=== PATIENT | male | born 1995 | race Caucasian/White ===

== ENCOUNTER 2017-02-18 15:58 | Emergency (ER) | payer SELFPAY ==
[2017-02-18 16:05] VITALS: BP 108/90
[2017-02-18] MEDS ORDERED: Meclizine TAB* 12.5 MG PO ONE (16:43)
[2017-02-18] MEDS ORDERED: Acetaminophen TAB* 325 MG PO ONE (16:43)
[2017-02-18] MEDS ORDERED: Ondansetron ODT TAB* 4 MG SL ONE (16:43)
--- NOTE | 2017-02-18 16:56 | ED ---
Adult Trauma - HPI Summary HPI Summary: The patient is a 21 year old male presenting for left eye injury. Reports accidentally punched in left eye while playing gator ball. Complains of left eye pain, blurred vision, photophobia, epistaxis, headache, dizziness, nausea, vomiting twice, and ataxia. Denies prior head injury. Denies neck pain or immobility, trismus, chest pain, shortness of breath, abdominal pain, gross hematuria, unilateral weakness, paresthesias. Denies past medical or surgical history. Denies family history. SH: Denies smoking, alcohol, or recreational drug use. Student in college. [employer]. - History of Current Complaint Chief Complaint: EDFacialInjury Stated Complaint: HIT HEAD / VOMITING Time Seen by Provider: 02/18/17 16:11 Pain Intensity: 9 - Allergy/Home Medications Allergies/Adverse Reactions: Allergies Allergy/AdvReac Type Severity Reaction Status Date / Time Sulfa Antibiotics Allergy Unknown Verified 09/19/16 11:14 Reaction Details PMH/Surg Hx/FS Hx/Imm Hx Endocrine/Hematology History: Denies: Hx Diabetes, Hx Thyroid Disease Cardiovascular History: Denies: Hx Congestive Heart Failure, Hx Deep Vein Thrombosis, Hx Hypertension , Hx Myocardial Infarction, Hx Pacemaker/ICD Respiratory History: Denies: Hx Asthma, Hx Chronic Obstructive Pulmonary Disease (COPD), Hx Lung Cancer, Hx Pneumonia, Hx Pulmonary Embolism GI History: Denies: Hx Gall Bladder Disease, Hx Gastrointestinal Bleed, Hx Ulcer, Hx Urosepsis History: Denies: Hx Kidney Stones, Hx Renal Disease Neurological History: Denies: Hx Dementia, Hx Migraine, Hx Seizures, Hx Transient Ischemic Attacks (TIA) Psychiatric History: Denies: Hx Anxiety, Hx Depression, Hx Schizophrenia, Hx Bipolar Disorder Infectious Disease History: No Infectious Disease History: Denies: Traveled Outside the [place] in Last 30 Days - Family History Known Family History: Positive: None Negative: Cardiac Disease, Hypertension, Diabetes - Social History Alcohol Use: None Substance Use Type: Reports: None Smoking Status (MU): Never Smoked Tobacco Type: Smokeless Tobacco Amount Used/How Often: "once every two months" Review of Systems Positive: Fatigue. Negative: Fever, Chills Positive: Photophobia, Blurred Vision. Negative: Diplopia, Erythema Positive: Epistaxis. Negative: Dental Pain Cardiovascular: Negative Negative: Chest Pain Respiratory: Negative Negative: Cough Positive: Vomiting, Nausea. Negative: Abdominal Pain Genitourinary: Negative Negative: hematuria Musculoskeletal: Negative Negative: Arthralgia, Myalgia, Decreased ROM Skin: Negative Negative: Rash, Bruising Positive: Headache. Negative: Paresthesia, Numbness, Syncope Psychological: Normal All Other Systems Reviewed And Are Negative: Yes Physical Exam Triage Information Reviewed: Yes Vital Signs On Initial Exam: Initial Vitals Temp Pulse Resp BP Pulse Ox 98.6 F 64 16 108/90 100 02/18/17 16:00 02/18/17 16:00 02/18/17 16:00 02/18/17 16:00 02/18/17 16:00 Appearance: Positive: Well-Appearing, Well-Nourished, Pain Distress - moderate pain guarding left eye with clear lacrimation Skin: Positive: Warm, Skin Color Reflects Adequate Perfusion, Dry Head/Face: Positive: Other - left infraorbital ecchymosis. Negative: TMJ Tenderness, Cephalohematoma Eyes: Positive: EOMI, KRISTINE, Conjunctiva Clear, Other: - Left corneal mildly injected; stain uptake with minor linear abrasion left medial corneal without full thickness penetration; no anterior hyphema or subconjunctival hemorrhage.. Negative: Normal, Conjunctiva Inflammed, Discharge ENT: Positive: Hearing grossly normal, Pharynx normal, TMs normal - No lomeli sign, hemotympanum or CSF drainage., Other - friable left nasal septum intact without hemorrhage; mild nasal bridge tenderness Dental: Negative: Dental Fracture @ Neck: Positive: Supple, Nontender, No Lymphadenopathy Respiratory/Lung Sounds: Positive: Clear to Auscultation, Breath Sounds Present. Negative: Decreased Breath Sounds, Rales, Rhonchi, Wheezes Cardiovascular: Positive: Normal - radial pulse 2+, RRR, S1, S2. Negative: Murmur, Rub, Tachycardia Abdomen Description: Positive: Nontender, No Organomegaly, Soft. Negative: Distended, Guarding, Hepatomegaly, Peritoneal Signs, Splenomegaly Bowel Sounds: Positive: Present Musculoskeletal: Positive: Normal, Strength/ROM Intact. Negative: Limited @, Interruption @, Pain @ Neurological: Positive: Normal, Sensory/Motor Intact, Alert, Oriented to Person Place, Time, CN Intact II-III, Reflexes Intact, Finger to Nose - normal, Facial Symmetry, Speech Normal Psychiatric: Positive: Normal AVPU Assessment: Alert Diagnostics - Vital Signs Vital Signs Temp Pulse Resp BP Pulse Ox 03/23/17 16:00 98.6 F 64 16 108/90 100 - Laboratory Lab Statement: Any lab studies that have been ordered have been reviewed, and results considered in the medical decision making process. Re-Evaluation - Re-Evaluation First Eval Re-Evaluation Time: 18:05 Change: Improved Comment: Reports improved headache, resolved vomiting. Persistent pain left eye. Adult Trauma Course/Dx - Course Assessment/Plan: Patient presented for head injury and left eye injury. CT Brain negative for intracranial process and CT maxillofacial negative for acute fracture. Impression of acute concussion, resolved epistaxis, and corneal abrasion. Rx zofran, meclizine, and erythromycin eye ointment. Removed from classes until Wednesday and advised to abstain from physical activity until cleared by [facility]. Given referral to Dr. Chung for re- eval of eye in 3-5 days. - Diagnoses Provider Diagnoses: Corneal abrasion, left, Concussion, Epistaxis Discharge - Discharge Plan Condition: Stable Disposition: HOME Prescriptions: Erythromycin OPHTH.OINT* [Ilotycin OPHTH.OINT*] 1 applic LEFT EYE QID #1 tube Meclizine TAB* [Antivert 12.5 TAB*] 25 mg PO TID #20 tab Ondansetron ODT TAB* [Zofran 4 MG Odt TAB*] 4 mg PO Q6H PRN #20 tab.odt PRN Reason: Nausea Patient Education Materials: Concussion (ED), Corneal Abrasion (ED), Nosebleed (ED) Forms: *School Release Referrals: Non Staff,Doctor [Primary Care Provider] - Tomy Chung MD [Medical Doctor] - 5 Days Additional Instructions: Follow-up with [facility] in 3-5 days.
--- NOTE | 2017-02-18 17:28 | RAD ---
Indication: Left head and orbits injury. CT of the brain was performed without IV contrast. Ventricular structures are midline. No midline shift is noted. The extra-axial spaces are unremarkable. There is no evidence of intracranial mass or hemorrhage. No other high or low density lesions are identified. IMPRESSION: No intracranial mass or hemorrhage is noted.
--- NOTE | 2017-02-18 17:30 | RAD ---
Indication: Left orbital injury. CT of the orbits was obtained in the axial plane. Sagittal and coronal reconstructed images were obtained. The mandible demonstrates no evidence of fracture. Temporomandibular joints are normal in location. The skull base demonstrates no evidence of fracture. Zygomatic arch is intact without evidence of fracture. The maxilla including the pterygoid plates are intact. Mucosal thickening of the left maxillary sinus is noted. Air-fluid level is noted in the left maxillary sinus. The orbits demonstrates no evidence of fracture. No intraconal or extraconal masses are identified. IMPRESSION: NO FRACTURE OF THE ORBITS IS NOTED. AIR-FLUID LEVEL WITH MUCOSAL THICKENING IN THE LEFT MAXILLARY SINUS WELL THE LEFT ETHMOID AIR CELLS CONSISTENT WITH CHRONIC AND ACUTE SINUSITIS IN THE LEFT MAXILLARY SINUS AND ETHMOID AIR CELLS.
== END 2017-02-18 18:27 | disposition home or self-care (01) ==
LOC: ED 15:58
DX: S06.0X0A Concussion without loss of consciousness, initial encounter (principal); S05.02XA Injury of conjunctiva and corneal abrasion without foreign body, left eye, initial encounter; R04.0 Epistaxis; R11.2 Nausea with vomiting, unspecified; H53.149 Visual discomfort, unspecified; H53.8 Other visual disturbances; R53.83 Other fatigue; R51 Headache; W50.0XXA Accidental hit or strike by another person, initial encounter; Y93.73 Activity, racquet and hand sports; Y92.9 Unspecified place or not applicable; Y99.9 Unspecified external cause status
CPT/HCPCS: 70450; 70486; 99281; A9270-GY